=== PATIENT | female | born 1980 | race Caucasian/White ===

== ENCOUNTER → 2023-07-23 08:57 | Outpatient (CLI) | payer OTHER, SELFPAY ==
--- NOTE | ~2023-07-23 | CT_ITS ---
EXAMINATION: CT abdomen pelvis w con DATE: 07/23/2023 09:25 INDICATION: Pelvic pain and pressure for 2 days. Hematuria. TECHNIQUE: Computed tomography (CT) of the abdomen and pelvis was performed with 100 CC Omnipaque 350 intravenous contrast. Automated exposure control and iterative reconstruction technique were employe d. Exam dose: 399.27 mGy-cm total exam DLP. COMPARISON: None. FINDINGS: Normal heart size. No pericardial or pleural effusion. The lung bases are clear of infiltra te or consolidation. The liver, gallbladder, bile ducts, spleen, pancreas, pancreatic duct, and adrenal glands are unremar kable. No renal mass lesion. There is an approximately 2 mm nonobstructing right renal calculus. The ureters are difficult to trace. There is a possible 2.4 x 4.7 mm distal left ureteral calculus. P ost contrast KUB or repeat delayed postcontrast CT abdomen pelvis examination with help to more defin itively evaluate whether this is a ureteral calculus. There are multiple bilateral calcified pelvic phleboliths. There is a prominent amount of fecal material throughout the colon. No bowel obstruction, bowel wall thickening, pneumatosis or intraperitoneal free air is detected. The urinary bladder, uterus and adnexal areas are unremarkable with the exception of 1.8 cm left ovar joel cyst. Normal caliber of the abdominal aorta. No intraperitoneal or retroperitoneal or pelvic mass lesion or adenopathy or ascites is detected. Included skeletal structures are unremarkable other than thoracic and lumbar scoliosis. IMPRESSION: Possible 2.4 x 4.7 mm distal left ureteral calculus; no left hydronephrosis. Delayed KUB post contrast CT abdomen pelvis at this time is recommended, with possible repeat delayed postcontra st CT abdomen pelvis today as well should be considered. 2 mm nonobstructing right renal calculus 1.8 cm left ovarian cyst Reviewed, dictated and finalized at Location A. Reviewed, dictated and finalized at location B. STRIAL TWISTING MACHINE OPERATOR IMPRESSION: Possible 2.4 x 4.7 mm distal left ureteral calculus; no left hydro nephrosis. Delayed KUB post contrast CT abdomen pelvis at this time is recommen ded, with possible repeat delayed postcontrast CT abdomen pelvis today as well should be considered. 2 mm nonobstructing right renal calculus 1.8 cm left ovarian cyst
--- NOTE | ~2023-07-23 | XR_ITS ---
XR abdomen/kub 1V DATE: 07/23/2023 14:02 INDICATION: Pelvic pain, kidney stones. TECHNIQUE: 2 supine AP views COMPARISON: None FINDINGS: There is no hydronephrosis of either kidney or ureteral dilatation. There is radiopaque con trast material within the urinary evacuated urinary bladder. The psoas shadows are intact. No visceromegaly is evident. There is a prominent amount fecal material within the colon. No bowel obstruction is evident. . Without benefit of a mobile architect KUB, this examination does not exclude a nonobstructing calculus within the distal left ureter as questioned on the 07/23/2023 CT abdomen pelvis examination. Consider follow -up KUB another day after complete clearance of the IV contrast material IMPRESSION: No urinary tract obstruction is detected. Cannot exclude a nonobstructing distal left ure teral calculus. Consider follow-up KUB. Reviewed, dictated and finalized at Location A. Reviewed, dictated and finalized at location B. FLE BOARD OPERATOR IMPRESSION: No urinary tract obstruction is detected. Cannot exclude a nonobstr ucting distal left ureteral calculus. Consider follow-up KUB.
== END ==
PROVIDERS: PCP Nurse Practitioner; Visit Provider Nurse Practitioner
DX: R31.9 Hematuria, unspecified (principal); R10.2 Pelvic and perineal pain; N83.202 Unspecified ovarian cyst, left side; N20.0 Calculus of kidney
CPT/HCPCS: 74018; 74177; Q9967

== ENCOUNTER 2023-07-23 15:54 | Emergency (ER) | payer OTHER, SELFPAY ==
[2023-07-23 16:21] VITALS: BP 120/75; PULSE 62; RESP 17; TEMP 36.5; O2SAT 100
== END 2023-07-23 17:01 | disposition left against medical advice (07) ==
LOC: ANHED 16:25
PROVIDERS: PCP Nurse Practitioner
DX: N20.0 Calculus of kidney (principal)
CPT/HCPCS: 99199

== ENCOUNTER → 2023-07-27 08:51 | Outpatient (CLI) | payer OTHER, SELFPAY ==
--- NOTE | ~2023-07-27 | XR_ITS ---
XR abdomen/kub 1V 07/27/2023 09:21 INDICATION: Left ureteral stone TECHNIQUE: KUB COMPARISON: 07/23/2023 FINDINGS: Bowel gas pattern is normal. There is no evidence of free air, mass, organomegaly, ascites or obstruction. No abnormal calculi are seen. Calcifications in the pelvis are believed to be phleb oliths. The bones appear intact. There is levoscoliosis of the lumbar spine. IMPRESSION: 1: No acute abdominal abnormality identified. Reviewed, dictated and finalized at location L. NG MACHINE MAINTENANCE MECHANIC
== END ==
PROVIDERS: PCP Nurse Practitioner; Visit Provider Nurse Practitioner
DX: N20.1 Calculus of ureter (principal); R10.2 Pelvic and perineal pain; R31.9 Hematuria, unspecified; N20.0 Calculus of kidney
CPT/HCPCS: 74018

== ENCOUNTER 2025-06-19 14:00 | Outpatient (CLI) | payer OTHER, SELFPAY ==
--- NOTE | ~2025-06-19 | XR_ITS ---
EXAMINATION: XR abdomen/kub 1V, 06/19/2025 14:19 CDT HISTORY: renal stone; looking to see if stone passed COMPARISON: No comparisons available. Technique: 3 view. Findings: Moderate fecal content throughout the large bowel. No definite renal or ureteral calculi identified, there are multiple phleboliths in the pelvis. Indication noted of the pelvis, the hardware appears intact. Impression: 1. No definite ureteral calculi identified Reviewed, dictated and finalized at location P. Impression: 1. No definite ureteral calculi identified
--- OUTSIDE RECORDS SUMMARY | 2025-06-19 16:02 | XMS_ITS | Encounter Summary ---
Author Organization [facility] Address [address] [place] [address] Care Team Providers Care Computer Applications Instructor Name Role Phone Rose Pacheco MD Unavailable [phone] Rivera Solitario MD Unavailable [phone] Kary Morocho NP Primary Care Provider + [phone] Akanksha De Jesus MD Primary Care Provider + Encounter Details Date Type Department Care Team (Late st Contact Info) Description 02/09/2023 [employer] Message Enc [facility] Family Medicine - [place] [address] [facility] [address] [place], [place] [phone] Kary Morocho, [place] [address] [place], [place] [id number] Test result Social History Tobacco Use Types Packs/Day Years Used Date Smoking Tobacco: Never Passive Smoke Exposure: Never Smokeless Tobacco: Never Alcohol Use Standard Drinks/Week Comments Yes 0 (1 standard drink = 0.6 oz pur e alcohol) socially / monthly PHQ-2 Answer Date Recorded Patient Health Questionnaire-2 Score 2 11/13/2022 Comments No Sex and Gender Information Value Date Recorded Sex Assigned at Female 11/13/2024 11:18 AM CDT Legal Sex Female 7:17 PM CDT Gender Identity Not on file Sexual Orientation Not on file COVID-19 Exposure Response Date Recorded In the last 10 days, have yo u been in contact with someone who was confirmed or suspected to have Coronavirus/COVID-19? No / Unsure 02/12/2023 12:30 PM CDT documented as of this encounter Plan of Treatment Upcoming Encounters Date Type Department Care Team (Late st Contact Info) Description 06/22/2025 11:00 AM CDT Appointment [facility] [place] [address] Porter Cade MD 3 [place] [address] 07/03/2025 7:50 AM CDT Office Visit [facility] Medical Group Family Medicine - [place] [address] [place] [address] Akanksha De Jesus MD [address] [place] [address] 07/20/2025 12:45 PM KEG FILLER Office Visit [facility] [address] Brooks Vance MD [address] [facility] [address] [place] [address] 11/05/2025 10:20 AM KEG FILLER Office Visit [facility] Multispecialty Care - [facility] [address] [facility], [address] [place] [address] Porter Cade MD 3 [place] [address] documented as of this encounter Visit Diagnoses Not on filedocumented in this encounter Additional Health Concerns Assessment Noted Time PHQ-9 Depression Total Score: 10 023 10:50 AM KEG FILLER documented as of this encounter Care Teams Computer Applications Instructor Relationship Specialty Start Date End Date Kary Morocho NP [address] [place] [address] PCP - General NURSE PRACTITIONER 09/17/20 06/18/24 Akanksha De Jesus MD [address] [place] [address] PCP - General FAMILY PRACTICE 06/19/24 Roes Pacheco MD [address] [facility] [address] [place] [address] Referring Physician GASTROENTEROLOGY 01/02/19 Rivera Solitario MD [address] [facility] [address] [place] [address] Referring Physician DERMATOLOGY 01/02/19 documented as of this encounter
--- OUTSIDE RECORDS SUMMARY | 2025-06-19 16:02 | XMS_ITS | Encounter Summary ---
Author Organization [facility] Address [address] [place] [address] Care Team Providers Care Hide Buyer Name Role Phone Rose Pacheco MD Unavailable [phone] Rivera Solitario MD Unavailable [phone] Kary Morocho NP Primary Care Provider + [phone] Akanksha De Jesus MD Primary Care Provider + Encounter Details Date Type Department Care Team (Late st Contact Info) Description 04/20/2024 MyChart Message Enc [facility] Family Medicine - [place] [address] [place] [phone] Akanksha De Jesus MD [address] [place], [place] [id number] Dr mckinney Social History Tobacco Use Types Packs/Day Years Used Date Smoking Tobacco: Never Passive Smoke Exposure: Never Smokeless Tobacco: Never Alcohol Use Standard Drinks/Week Comments Yes 0 (1 standard drink = 0.6 oz pur e alcohol) socially / monthly PHQ-2 Answer Date Recorded Patient Health Questionnaire-2 Score 5 03/27/2024 Comments No Sex and Gender Information Value Date Recorded Sex Assigned at Female 11/13/2024 11:18 AM CDT Legal Sex Female 7:17 PM CDT Gender Identity Not on file Sexual Orientation Not on file 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 Not on file Not on file documented as of this encounter Plan of Treatment Upcoming Encounters Date Type Department Care Team (Late st Contact Info) Description 06/22/2025 11:00 AM CDT Appointment [facility] [place] [place] [address] Porter Cade MD 3 [place] [address] 07/03/2025 7:50 AM CDT Office Visit [facility] Family Medicine - [place] [address] [place] [address] Akanksha De Jesus MD [address] [place] [address] 07/20/2025 12:45 PM HISTOPATHOLOGY TECHNICIAN Office Visit [facility] [phone] Brooks Vance MD [address] [facility] [address] [place] [address] 11/05/2025 10:20 AM HISTOPATHOLOGY TECHNICIAN Office Visit [facility] Multispecialty Care - [facility] [address] [facility], [address] [place] [address] Porter Cade MD 3 [place] [address] documented as of this encounter Visit Diagnoses Not on filedocumented in this encounter Additional Health Concerns Assessment Noted Time PHQ-9 Depression Total Score: 10 023 10:50 AM HISTOPATHOLOGY TECHNICIAN documented as of this encounter Care Teams Hide Buyer Relationship Specialty Start Date End Date Kary Morocho NP [address] [place] [address] PCP - General NURSE PRACTITIONER 09/17/20 06/18/24 Akanksha De Jesus MD [address] [address] PCP - General FAMILY PRACTICE 06/19/24 Rose Pacheco MD [address] [facility] [address] [place] [address] Referring Physician GASTROENTEROLOGY 01/02/19 Rivera Solitario MD [address] [facility] [address] [place] [address] Referring Physician DERMATOLOGY 01/02/19 documented as of this encounter
--- OUTSIDE RECORDS SUMMARY | 2025-06-19 16:02 | XMS_ITS | Encounter Summary ---
Author Organization [facility] Address [address] [place] [address] Care Team Providers Care Liquor Gallery Operator Name Role Phone Rose Pacheco MD Unavailable [phone] Rivera Solitario MD Unavailable [phone] Kary Morocho NP Primary Care Provider + [phone] Akanksha De Jesus MD Primary Care Provider + Encounter Details Date Type Department Care Team (Late st Contact Info) Description 06/18/2024 MyChart Message Enc [facility] Medical Group Family Medicine - [place] [address] [place] [phone] Akanksha De Jesus MD [address] [place] [phone] Accident Social History Tobacco Use Types Packs/Day Years [...] Info) Description 06/22/2025 11:00 AM CDT Appointment [facility] [place] [address] Porter Cade MD 3 [place] [address] 07/03/2025 7:50 AM CDT Office Visit [facility] Family Medicine - [place] [address] [place] [address] Akanksha De Jesus MD [address] [place] [address] 07/20/2025 12:45 PM LACQUER SHADER Office Visit [facility] [address] Brooks Vance MD Three [facility] [address] [place] [address] 11/05/2025 10:20 AM LACQUER SHADER Office Visit [facility] Multispecialty Care - [facility] [address] [facility], [address] [place] [address] Porter Cade MD 3 [place] [address] documented as of this encounter Visit Diagnoses Not on filedocumented in this encounter Additional Health Concerns Assessment Noted Time PHQ-9 Depression Total Score: 10 023 10:50 AM LACQUER SHADER documented as of this encounter Care Teams Liquor Gallery Operator Relationship Specialty Start Date End Date Kary Morocho NP [address] [place] [address] PCP - General NURSE PRACTITIONER 09/17/20 06/18/24 Akanksha De Jesus MD [address] [facility] [address] [place] [address] PCP - General FAMILY PRACTICE 06/19/24 Rose Pacheco MD [address] [facility] [address] [place] [address] Referring Physician GASTROENTEROLOGY 01/02/19 Rivera Solitario MD [address] [facility] [address] [place] [address] Referring Physician DERMATOLOGY 01/02/19 documented as of this encounter
--- OUTSIDE RECORDS SUMMARY | 2025-06-19 16:02 | XMS_ITS | Encounter Summary ---
Author Organization [facility] Address [address] [place] [address] Care Team Providers Care Environmental Inspector Name Role Phone Rose Pacheco MD Unavailable [phone] Rivera Solitario MD Unavailable [phone] Kayr Morocho NP Primary Care Provider [phone] Akanksha De Jesus MD Primary Care Provider + Encounter Details Date Type Department Care Team (Late st Contact Info) Description 07/21/2023 [employer] Message Enc [facility] Medical Group Family Medicine - [place] [address] [facility] [address] [place] [address] Alec, [facility] Provider appointment Social History Tobacco Use Types Packs/Day Years [...] Encounters Date Type Department Care Team (Late Contact Info) Description 06/22/2025 11:[address] [facility] [place] [address] Porter Cade MD 3 [place] [address] 07/03/2025 7:50 AM CDT Office Visit [facility] Family Medicine - [place] [address] [place] [address] Akanksha De Jesus MD [address] [place] [address] 07/20/2025 12:45 PM COMFORT ADVISOR Office Visit [facility] [address] Brooks Vance MD Three [facility] [address] [place] [address] 11/05/2025 10:20 AM COMFORT ADVISOR Office Visit [facility] Multispecialty Care - [facility] [address] [facility], [address] [place] [address] Porter Cade MD 3 [place] [address] documented as of this encounter Visit Diagnoses Not on filedocumented in this encounter Additional Health Concerns Assessment Noted Time PHQ-9 Depression Total Score: 10 023 10:50 AM COMFORT ADVISOR documented as of this encounter Care Teams Environmental Inspector Relationship Specialty Start Date End Date Kary Morocho NP [address] [place] [address] PCP - General NURSE PRACTITIONER 09/17/20 06/18/24 Akanksha De Jesus MD [address] [place] [address] PCP - General FAMILY PRACTICE 06/19/24 Rose Pacheco MD [address] [facility] [address] [place] [address] Referring Physician GASTROENTEROLOGY 01/02/19 Rivera Solitario MD [address] [facility] [address] [place] [address] Referring Physician DERMATOLOGY 01/02/19 documented as of this encounter
--- OUTSIDE RECORDS SUMMARY | 2025-06-19 16:02 | XMS_ITS | Encounter Summary ---
Author Organization [facility] Address [address] [place] [address] Care Team Providers Care Genetic Counsellor Name Role Phone Rose Pacheco MD Unavailable [phone] Rivera Solitario MD Unavailable [phone] Kary Morocho NP Primary Care Provider + [phone] Akanksha De Jesus MD Primary Care Provider + Encounter Details Date Type Department Care Team (Late st Contact Info) Description 01/11/2023 [employer] Message Enc [facility] Medical Group Family Medicine - [place] [address] [facility] [address] [place], [place] [phone] Kary Morocho, [place] [address] [place] [address] [place], [place] [address] Meds Social History Tobacco Use Types Packs/Day Years Used Date Smoking Tobacco: Never Smokeless Tobacco: Never Alcohol Use Standard [...] suspected to have Coronavirus/COVID-19? No / Unsure 01/13/2023 1:33 PM CDT documented as of this encounter Progress Notes * Cat Cohen MA - 01/11/2023 4:03 PM CDT Appointment made 01/13/23 documented in this encounter Plan of Treatment Upcoming Encounters Date Type Department Care Team (Late st Contact Info) Description 06/22/2025 11:00 AM CDT Appointment [facility] [place] [address] Porter Cade MD 3 [facility] [place] [address] 07/03/2025 7:50 AM CDT Office Visit [facility] Family Medicine - [place] [address] [place] [address] Akanksha De Jesus MD [address] [place] [address] 07/20/2025 12:45 PM CORD MAKER Office Visit [facility]-[address] [address] Brooks Vance MD [address] [facility] [address] [place] [address] 11/05/2025 10:20 AM CORD MAKER Office Visit [facility] [address] [facility], [address] [place] [address] Porter Cade MD 3 [facility] [place] [address] documented as of this encounter Visit Diagnoses Not on filedocumented in this encounter Additional Health Concerns Assessment Noted Time PHQ-9 Depression Total Score: 10 023 10:50 AM CORD MAKER documented as of this encounter Care Teams Genetic Counsellor Relationship Specialty Start Date End Date Kary Morocho NP [address] [place] [address] PCP - General NURSE PRACTITIONER 09/17/20 06/18/24 Akanksha De Jesus MD [address] [place] [address] PCP - General FAMILY PRACTICE 06/19/24 Rose Pacheco MD [address] [facility] [address] [place] [address] Referring Physician GASTROENTEROLOGY 01/02/19 Rivera Solitario MD [address] [facility] [address] [place] [address] Referring Physician DERMATOLOGY 01/02/19 documented as of this encounter
--- OUTSIDE RECORDS SUMMARY | 2025-06-19 16:02 | XMS_ITS | Encounter Summary ---
Author Organization [facility] Address [address] [place] [address] Care Team Providers Care Buckle Gluer Name Role Phone Rose Pacheco MD Unavailable [phone] Rivera Solitario MD Unavailable [phone] Kary Morocho NP Primary Care Provider + [phone] Akanksha De Jesus MD Primary Care Provider + Encounter Details Date Type Department Care Team (Late st Contact Info) Description 08/04/2023 MyChart Message Enc [facility] Family Medicine - [place] [address] [facility] [address] [place] [phone] Kary Morocho, CHIEF OF VITAL STATISTICS [address] [place] [address] [place], [place] [address] Update Social History Tobacco Use Types Packs/Day Years [...] Description 06/22/2025 11:00 AM CDT Appointment [facility] [place] [address] Porter Cade MD 3 [place] [address] 07/03/2025 7:50 AM CDT Office Visit [facility] Family Medicine - [place] [address] [place] [address] Akanksha De Jesus MD [address] [place] [address] 07/20/2025 12:45 PM RUBBER GOODS TESTER WATER Office Visit [facility] [address] Brooks Vance MD Three [facility] [address] [place] [address] 11/05/2025 10:20 AM RUBBER GOODS TESTER WATER Office Visit [facility] Multispecialty Care - [facility] 3 [facility], [address] [place] [address] Porter Cade MD 3 [place] [address] documented as of this encounter Visit Diagnoses Not on filedocumented in this encounter Additional Health Concerns Assessment Noted Time PHQ-9 Depression Total Score: 10 023 10:50 AM RUBBER GOODS TESTER WATER documented as of this encounter Care Teams Buckle Gluer Relationship Specialty Start Date End Date Kary Morocho NP [address] [place] [address] PCP - General NURSE PRACTITIONER 09/17/20 06/18/24 Akanksha De Jesus MD [address] [facility] [address] [place] [address] PCP - General FAMILY PRACTICE 06/19/24 Rose Pacheco MD [address] [facility] [address] [place] [address] Referring Physician GASTROENTEROLOGY 01/02/19 Rivera Solitario MD [address] [facility] [address] [place] [address] Referring Physician DERMATOLOGY 01/02/19 documented as of this encounter
--- OUTSIDE RECORDS SUMMARY | 2025-06-19 16:02 | XMS_ITS | Encounter Summary ---
Author Organization [facility] Address [address] [place] [address] Care Team Providers Care Personalization Specialist Name Role Phone Leonides Shannon [facility] Primary Care Provider Rose Lockwood MD Unavailable [phone] Rivera Solitario MD Unavailable [phone] Kary Morocho NP Primary Care Provider [phone] Akanksha De Jesus MD Primary Care Provider + Encounter Details Date Type Department Care Team (Late st Contact Info) Description 11/07/2019 MyChart Message Enc [facility] Medical Group Family Medicine [address] [address] Mychart, [facility] Provider GI doctor Social History Tobacco Use Types Packs/Day Years Used Date Smoking Tobacco: Never Smokeless Tobacco: Never Alcohol Use Standard Drinks/Week Comments Yes 0 (1 standard drink = 0.6 oz pur e alcohol) socially / monthly Comments Unknown Sex and Gender Information Value Date Recorded Sex Assigned at Female 11/13/2024 11:18 AM CDT Legal Sex Female 7:17 PM CDT Gender Identity Not on file Sexual Orientation Not on file documented as of this encounter Plan of Treatment Upcoming Encounters Date Type Department Care Team (Late Contact Info) Description 06/22/2025 11:[address] [facility] [place] [address] Porter Cade MD 3 [place] [address] 07/03/2025 7:50 AM CDT Office Visit [facility] Family Medicine - [place] [address] [place] [address] Akanksha De Jesus MD [address] [place] [address] 07/20/2025 12:45 PM INKJET OPERATOR Office Visit [facility]-[address] [address] Brooks Vance MD Three [facility] [address] [place] [address] 11/05/2025 10:20 AM INKJET OPERATOR Office Visit [facility] Multispecialty Care - [facility] 3 [facility], [address] [place] [address] Porter Cade MD 3 [place] [address] documented as of this encounter Visit Diagnoses Not on filedocumented in this encounter Additional Health Concerns Infection Onset Date Last Indicated Resolved Time COVID-19 Rule Out 02/05/2020 02/05/2020 02/06/2020 9:15 AM CDT documented as of this encounter Care Teams Personalization Specialist Relationship Specialty Start Date End Date Shannon Coyle FNP-BC PCP - General NURSE PRACTITIONER 01/02/19 09/16/20 Kary Morocho NP [address] [place] [address] PCP - General NURSE PRACTITIONER 09/17/20 06/18/24 Akanksha De Jesus MD [address] [place] [address] PCP - General FAMILY PRACTICE 06/19/24 Rose Pacheco MD [address] [facility] [address] [place], [place] [address] Referring Physician GASTROENTEROLOGY 01/02/19 Rivera Solitario MD [address] [facility] [address] [place], [place] [address] Referring Physician DERMATOLOGY 01/02/19 documented as of this encounter
--- OUTSIDE RECORDS SUMMARY | 2025-06-19 16:02 | XMS_ITS | Encounter Summary ---
Author Organization [facility] Address [address] [place] [address] Care Team Providers Care Accounts Executive Name Role Phone Rose Pacheco MD Unavailable [phone] Rivera Solitario MD Unavailable [phone] Kary Morocho NP Primary Care Provider + [phone] Akanksha De Jesus MD Primary Care Provider + Encounter Details Date Type Department Care Team (Latest Contact Info) Description 11/15/2022 Rent Heret Message Enc [facility] Medical [facility] Family Medicine - [place] [address] [facility] [address] [place] [phone] Kary Morocho, [place] [address] [place], [place] [phone] Regarding my prescriptions Social History Tobacco Use Types Packs/Day Years [...] suspected to have Coronavirus/COVID-19? No / Unsure 11/13/2022 8:50 AM ELECTROMECHANICAL INSPECTOR documented as of this encounter Plan of Treatment Upcoming Encounters Date Type Department Care Team (Late st Contact Info) Description 06/22/2025 11:[address] [facility] [place] [place] [address] Porter Cade MD 3 [place] [address] 07/03/2025 7:50 AM CDT Office Visit [facility] Family Medicine - [place] [address] [place] [address] Akanksha De Jesus MD [address] [place] [address] 07/20/2025 12:45 PM ELECTROMECHANICAL INSPECTOR Office Visit [facility] [place] [address] [phone] Brooks Vanec MD [address] [place] [address] 11/05/2025 10:20 AM ELECTROMECHANICAL INSPECTOR Office Visit [facility] Multispecialty Care - [place] [address] [place] [phone] Porter Cade MD 3 [place] [address] documented as of this encounter Visit Diagnoses Not on filedocumented in this encounter Additional Health Concerns Assessment Noted Time PHQ-9 Depression Total Score: 10 023 10:50 AM ELECTROMECHANICAL INSPECTOR documented as of this encounter Care Teams Accounts Executive Relationship Specialty Start Date End Date Kary Morocho NP [address] [place] [address] PCP - General NURSE PRACTITIONER 09/17/20 06/18/24 Akanksha De Jesus MD [address] [place] [address] PCP - General FAMILY PRACTICE 06/19/24 Rose Pacheco MD [address] [facility] [address] [place] [address] Referring Physician GASTROENTEROLOGY 01/02/19 Rivera Solitario MD [address] [facility] [address] [place] [address] Referring Physician DERMATOLOGY 01/02/19 documented as of this encounter
--- OUTSIDE RECORDS SUMMARY | 2025-06-19 16:02 | XMS_ITS | Encounter Summary ---
Author Organization [facility] Address [address] [place] [address] Care Team Providers Care Cryptologic Supervisor Name Role Phone Rose Pacheco MD Unavailable [phone] Rivera Solitario MD Unavailable [phone] Kary Morocho NP Primary Care Provider + [phone] Akanksha De Jesus MD Primary Care Provider + Encounter Details Date Type Department Care Team ([facility] Contact Info) Description 08/06/2023 Mc Kinney Locksmith Message Enc [facility] Medical Group Family Medicine - [place] [address] [facility] [address] [place], [place] [phone] Kary Morocho, [place] [address] [place], [place] [address] Responding to your message Social History Tobacco Use Types Packs/Day Years [...] Upcoming Encounters Date Type Department Care Team ([facility] Contact Info) Description 06/22/2025 11:00 AM CDT Appointment [facility] [address] Porter Cade MD 3 [place] [address] 07/03/2025 7:50 AM CDT Office Visit [facility] Family Medicine - [place] [address] [place] [address] Akanksha De Jesus MD [address] [place] [address] 07/20/2025 12:45 PM POULTRY BONER Office Visit [facility] [address] Brooks Vance MD Three [facility] [address] [place] [address] 11/05/2025 10:20 AM POULTRY BONER Office Visit [facility] Multispecialty Care - [facility] [address] [facility], [address] [place] [address] Porter Cade MD 3 [place] [address] documented as of this encounter Visit Diagnoses Not on filedocumented in this encounter Additional Health Concerns Assessment Noted Time PHQ-9 Depression Total Score: 10 023 10:50 AM POULTRY BONER documented as of this encounter Care Teams Cryptologic Supervisor Relationship Specialty Start Date End Date Kary Morocho NP [address] [place] [address] PCP - General NURSE PRACTITIONER 09/17/20 06/18/24 Akanksha De Jesus MD [address] [facility] [address] [place] [address] PCP - General FAMILY PRACTICE 06/19/24 Rose Pacheco MD [address] [facility] [address] [place] [address] Referring Physician GASTROENTEROLOGY 01/02/19 Rivera Solitario MD [address] [facility] [address] [place] [address] Referring Physician DERMATOLOGY 01/02/19 documented as of this encounter
--- OUTSIDE RECORDS SUMMARY | 2025-06-19 16:02 | XMS_ITS | Clinical Summary ---
Author Organization [facility] Address [address] [place] [address] Phone Care Team Providers Care Human Resources Temp Name Role Phone Stephanie Coyle APRN Primary Care Provider Jef Corral MD Unavailable Allergies Active Allergy Reactions Criticality Noted Date Comments Bupropion Other (see Comments) Medium 01/02/2019 Gluten Meal Other (see Comments) 01/02/2019 Dx w EGD Penicillins Hives 01/02/2019 Medications albuterol 108 (90 Base) MCG/ACT Aerosol Solution take 2 Puffs by inhalation. 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 10/2019 Seizure 01/02/2019 Immunizations Immunization Administration Dates Next Due Influenza Vaccine,unspecified Formulation 2018 TDAP Vaccine 07/14/2012 Family History Medical History Relation Name Comments Cancer Father Chronic Obstructive Pulmonary Disease Father Chronic Obstructive Pulmonary Disease Mother Heart Disease Mother Cancer Sister 1 Relation Name Status Comments Father Mother Sister 1 Alive Sister 2 Alive Social History Tobacco Use Types Packs/Day Years Used Date Smoking Tobacco: Never Smokeless Tobacco: Never Tobacco Cessation:Counseling Given: Not Answered Alcohol Use Standard Drinks/Week Comments Yes 0 (1 standard drink = 0.6 oz pur e alcohol) One time per month. Socially PHQ-2 Answer Date Recorded Total Score - Questions 1-9 0 05/08 Education Answer Date Recorded What is the highest level of school you have completed or the highest degree you have received? Master's degree (e.g., MA, MS, Ashlyn, MEd, CONSTRUCTION ASSISTANT, JOSEFA) 05/08/2020 Sexually Active Control Partners Comments Yes Comments No Sex and Gender Information Value Date Recorded Sex Assigned at Not on file Legal Sex Female 11:36 AM CDT Gender Identity Not on file Sexual Orientation Not on file Occupation Industry Job Start Date Job End Date Teacher Not on file Not on file Not on file Last Filed Vital Signs Vital Sign Reading Time Taken Comments Blood Pressure 108/60 04/28/2024 8:50 AM CDT Pulse 56 04/28/2024 8:50 AM CDT Temperature 36.2 C (97.1 F) 06/12/2022 8:29 AM CDT Respiratory Rate 18 06/12/2022 8:29 AM CDT Oxygen Saturation 97% 04/28/2024 8:50 AM CDT Inhaled Oxygen Concentration - - Weight 54.4 kg (120 lb) 06/12/2022 8:29 AM CDT Height 160 cm (5' 2.99) 06/12/2022 8:29 AM CDT Body Mass Index 21.26 06/12/2022 8:29 AM CDT Plan of Treatment Health Maintenance Due Date Last Done Comments Hepatitis C Virus (HCV) Screening 1982 Hepatitis B Immunization (1 of 3 - 19+ 3-dose series) 2001 Pap Smear 2003 Human Papillomavirus (HPV) Immunization (1 - 3-dose SCDM series) 2009 Cervical Cancer Screening (CCS) 2012 HPV/Cotest 2012 Mammogram 09/11/2023 09/11/2022, 02/2023, 07/23/2021, Additional history exists Influenza Immunization (#1) 2025 08/05/2019 SARS-COV-2 Immunization ( season) 2025 09/03/2021, 11/27/2020, 11/05/2020 Td Immunization Every 10 Years (Adults With 1 Tdap) 06/14/2034 06/14/2024, 07/14/2012 Respiratory Syncytial Virus (RSV) Immunization (Adult) (1 - 1-dose 75+ series) 2057 Discussion re Starting/Frequency of Mammograms Completed 09/11/2022, 07/23/2021 DTaP/Tdap/Td Immunization Discontinued 06/14/2024, 04/2012 Meningococcal Immunization (ACWY) Aged Out No longer eligible based on patient's age to complete this topic Pneumococcal Immunization Combined Aged Out No longer eligible based on patient's age to complete this topic Rotavirus Immunization Aged Out No lo nger eligible based on patient's age to complete this topic Insurance [facility] Care Teams Human Resources Temp Relationship Specialty Start Date End Date Stephanie Coyle APRN [address] [place] [address] PCP - General Family Medicine 04/26/20 Jef Corral MD [address] [place] [address] Consulting Physician Hematology and Oncology 02/05/21
--- OUTSIDE RECORDS SUMMARY | 2025-06-19 16:02 | XMS_ITS | Encounter Summary ---
Author Organization [facility] Address [address] [place] [address] Care Team Providers Care Mainframe Programmer Name Role Phone Leonides Shannon [facility] Primary Care Provider Rose Lockwood MD Unavailable [phone] Rivera Solitario MD Unavailable [phone] Kary Morocho NP Primary Care Provider [phone] Akanksha De Jesus MD Primary Care Provider + Encounter Details Date Type Department Care Team (Late st Contact Info) Description 02/05/[address] [facility] One Day Services ONE [place], [place] [phone] Gordon Macias MD [address] [phone] Social History Tobacco Use Types Packs/Day Years [...] Exposure Response Date Recorded In the last month, have you been in contact with someone who was confirmed or suspected to have Coronavirus / COVID-19? No / Unsure 02/08/2020 8:29 AM CDT documented as of this encounter Plan of Treatment Upcoming Encounters Date Type Department Care Team (Late st Contact Info) Description 06/22/2025 11:00 AM CDT Appointment [facility] [place] [place] [address] Porter Cade MD 3 [place] [address] 07/03/2025 7:50 AM CDT Office Visit [facility] Medical [facility] Family Medicine - [place] [address] [place] [address] Akanksha De Jesus MD [address] [place] [address] 07/20/2025 12:45 PM HOME PERFORMANCE CONSULTANT Office Visit [facility]-[address] [phone] Brooks Vance MD [address] [facility] [address] [place] [address] 11/05/2025 10:20 AM HOME PERFORMANCE CONSULTANT Office Visit [facility] Multispecialty Care - [facility] [address] [facility], [address] [place] [address] Porter Cade MD [address] [place] [address] documented as of this encounter Results * PRE-SURGICAL/PRE-PROCEDURE CORONAVIRUS (COVID 19) (02/05/2020 11:45 AM CDT) CORONAVIRUS SARS COV 2 PCR (RESP) NOT DETECTED NOT DETECTED 02/06/2020 9:15 AM CDT [facility] Comment: A Not Detected (negative) test result for this test means that SARS- CoV-2 RNA was not present in the specimen above the limit of detection. A negative result does not rule out the possibility of COVID-19 and should not be used as the sole basis for treatment or patient management decisions. If COVID-19 is still suspected, based on exposure history together with other clinical findings, re-testing should be considered in consultation with public health authorities. Laboratory test results should always be considered in the context of clinical observations and epidemiological data in making a final diagnosis and patient management decisions. Please review the Fact Sheets and FDA authorized labeling available for health care providers and patients using the following websites: https://www.LearnZillion.Sparkbrowser/home/Covid-19/HCP/QuestIVD/fact- sheet.html https://www.LearnZillion.Sparkbrowser/home/Covid-19/Patients/ QuestIVD/fact-sheet.html This test has been authorized by the FDA under an Emergency Use Authorization (EUA) for use by authorized laboratories. Due to the current public health emergency, [facility] is receiving a high volume of samples from a wide variety of swabs and media for COVID-19 testing. In order to serve patients during this public health crisis, samples from appropriate clinical sources are being tested. Negative test results derived from specimens received in non-commercially manufactured viral collection and transport media, or in media and sample collection kits not yet authorized by FDA for COVID-19 testing should be cautiously evaluated and the patient potentially subjected to extra precautions such as additional clinical monitoring, including collection of an additional specimen. Methodology: Nucleic Acid Amplification Test (NAAT) includes PCR or TMA Additional information about COVID-19 can be found at the [facility] website: www.ShopItToMe.Sparkbrowser/Covid19. Test performed at [facility] [address] [place] [address] Director: BENNY YOUSSEF DO,MPH NASOPHARYNGEAL SWAB / Unknown 02/05/2020 11:45 AM CDT Gordon Macias MD MICROBIOLOGY - GENERAL MELINDA [place] Final Result [facility] [address] [place] [address], documented in this encounter Visit Diagnoses Diagnosis Anemia- Primary Anemia, unspecified documented in this encounter Additional Health Concerns Infection Onset Date Last Indicated Resolved Time COVID-19 Rule Out 02/05/2020 02/05/2020 02/06/2020 9:15 AM CDT documented as of this encounter Care Teams Mainframe Programmer Relationship Specialty Start Date End Date Shannon Coyle FNP- PCP - General NURSE PRACTITIONER 01/02/19 09/16/20 Kary Morocho NP [address] [place] [address] PCP - General NURSE PRACTITIONER 09/17/20 06/18/24 Akanksha De Jesus MD [address] [place] [address] PCP - General FAMILY PRACTICE 06/19/24 Rose Pacheco MD [address] [facility] [address] [place] [address] Referring Physician GASTROENTEROLOGY 01/02/19 Rivera Solitario MD [address] [facility] [address] [place] [address] Referring Physician DERMATOLOGY 01/02/19 documented as of this encounter
--- OUTSIDE RECORDS SUMMARY | 2025-06-19 16:02 | XMS_ITS | Encounter Summary ---
Author Organization [facility] Address [address] [place] [address] Care Team Providers Care Document Clerk Name Role Phone Rose Pacheco MD Unavailable [phone] Rivera Solitario MD Unavailable [phone] Kary Morocho NP Primary Care Provider [phone] Akanksha De Jesus MD Primary Care Provider + Encounter Details Date Type Department Care Team (Late st Contact Info) Description 07/28/2023 MyChart Message Enc [facility] Family Medicine - [place] [address] [facility] [address] [place] [address] [place], [facility] Provider Xray Social History Tobacco Use Types Packs/Day Years [...] [facility]ointment [facility] [place] [place] [address] Porter Cade MD 3 [place] [address] 07/03/2025 7:50 AM CDT Office Visit [facility] Family Medicine - [place] [address] [place] [address] Akanksha De Jesus MD [address] [place] [address] 07/20/2025 12:45 PM EIGHT ARM OPERATOR Office Visit [facility] [address] Brooks Vance MD [address] [facility] [address] [place] [address] 11/05/2025 10:20 AM EIGHT ARM OPERATOR Office Visit [facility] Multispecialty Care - [facility] [address] [facility], [address] [place] [phone] Porter Cade MD 3 [place] [address] documented as of this encounter Visit Diagnoses Not on filedocumented in this encounter Additional Health Concerns Assessment Noted Time PHQ-9 Depression Total Score: 10 023 10:50 AM EIGHT ARM OPERATOR documented as of this encounter Care Teams Document Clerk Relationship Specialty Start Date End Date Kary Morocho NP [address] [place] [address] PCP - General NURSE PRACTITIONER 09/17/20 06/18/24 Akanksha De Jesus MD [address] [place] [address] PCP - General FAMILY PRACTICE 06/19/24 Rose Pacheco MD [address] [facility] [address] [place] [address] Referring Physician GASTROENTEROLOGY 01/02/19 Rivera Solitario MD [address] [facility] [address] [place] [address] Referring Physician DERMATOLOGY 01/02/19 documented as of this encounter
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
--- OUTSIDE RECORDS SUMMARY | 2025-06-19 16:02 | XMS_ITS | Encounter Summary ---
Author Organization [facility] Address [address] [place] [address] Care Team Providers Care Mergers And Acquisitions Manager Name Role Phone Rose Pacheco MD Unavailable [phone] Rivera Solitario MD Unavailable [phone] Kary Morocho NP Primary Care Provider + [phone] Akanksha De Jesus MD Primary Care Provider + Encounter Details Date Type Department Care Team (Late st Contact Info) Description 07/24/2021 Maker Studiost Message Enc [facility] Family Medicine - [place] [address] [facility] [address] [place], [place] [id number] Kary Morocho, [place] [address] [place], [place] [address] Question regarding US BREAST RT BIRAD LTD Social History Tobacco Use Types Packs/Day Years Used Date Smoking Tobacco: Never Smokeless Tobacco: Never Alcohol Use Standard Drinks/Week Comments Yes 0 (1 standard drink = 0.6 oz pur e alcohol) socially / monthly PHQ-2 Answer Date Recorded PHQ-2 Score - If the patient scores above 3, please move on to questions 3-9 2 10/01/2020 Comments No Sex and Gender Information Value Date Recorded Sex Assigned at Female 11/13/2024 11:18 AM CDT Legal Sex Female 7:17 PM CDT Gender Identity Not on file Sexual Orientation Not on file COVID-19 Exposure Response Date Recorded In the last month, have you been in contact with someone who was confirmed or suspected to have Coronavirus / COVID-19? No / Unsure 07/22/2021 3:14 PM RESIDENT IN DIAGNOSTIC RADIOLOGY documented as of this encounter Plan of Treatment Upcoming Encounters Date Type Department Care Team (Late st Contact Info) Description 06/22/2025 11:00 AM CDT Appointment [facility] [place] [address] Porter Cade MD 3 [place] [address] 07/03/2025 7:50 AM CDT Office Visit [facility] Family Medicine - [place] [address] [place] [address] Akanksha De Jesus MD [address] [place] [address] 07/20/2025 12:45 PM RESIDENT IN DIAGNOSTIC RADIOLOGY Office Visit [facility] [address] Brooks Vance MD [address] [facility] [address] [place] [address] 11/05/2025 10:20 AM RESIDENT IN DIAGNOSTIC RADIOLOGY Office Visit [facility] Multispecialty Care - [facility] [address] [facility], [address] [place] [address] Porter Cade MD [address] [place] [address] documented as of this encounter Visit Diagnoses Not on filedocumented in this encounter Additional Health Concerns Assessment Noted Time PHQ-9 Depression Total Score: 7 10/01/19 21 8:26 AM RESIDENT IN DIAGNOSTIC RADIOLOGY documented as of this encounter Care Teams Mergers And Acquisitions Manager Relationship Specialty Start Date End Date Kary Morocho NP [address] [place] [address] PCP - General NURSE PRACTITIONER 09/17/20 06/18/24 Akanksha De Jesus MD [address] [place] [address] PCP - General FAMILY PRACTICE 06/19/24 Rose Pacheco MD [address] [facility] [address] [place] [address] Referring Physician GASTROENTEROLOGY 01/02/19 Rivera Solitario MD [address] [facility] [address] [place] [address] Referring Physician DERMATOLOGY 01/02/19 documented as of this encounter
--- OUTSIDE RECORDS SUMMARY | 2025-06-19 16:02 | XMS_ITS | Clinical Summary ---
Author Organization [facility] Address Counts include 234 beds at the [facility] [place] [address] Care Team Providers Care Traffic Safety Administrator Name Role Phone Rose Pacheco MD Unavailable [phone] Rivera Solitario MD Unavailable [phone] Akanksha De Jesus MD Primary Care Provider + Allergies Active Allergy Reactions Criticality Noted Date Comments Gluten Meal Other (see comment),Diarrhea,Headache,Vomiting Low 01/02/2019 Dx w EGD Penicillins Hives 01/02/2019 Bupropion Seizure Medium 01/02/2019 Medications ALPRAZolam (XANAX) 0.25 MG tablet Take 1 tablet (0.25 mg total) by mouth nightly as needed for Sleep or Anxiety. Active cyanocobalamin (B-12 COMPLIANCE INJECTION) 1000 MCG/ML injection kit 3 Active meloxicam (MOBIC) 7.5 MG tablet Take 1 tablet (7.5 mg total) by mouth daily as needed. 5 Active ubrogepant (UBRELVY) 100 MG tabletIndication s:Migraine without aura, not intractable, without status migrainosus Take 1 tablet (100 mg total) by mouth 2 (two) times daily as needed. Max of 2 tablets (200 mg) in 24 hours 16 tablet 11 5 Active amphetamine-dext roamphetamine XR (ADDERALL XR) 15 mg 24 hr capsule Take 1 capsule (15 mg total) by mouth every morning. Active atogepant (QULIPTA) tabletIndication s:Migraine without aura, not intractable, without status migrainosus Take 1 tablet (60 mg total) by mouth daily. 30 tablet 11 5 Active amphetamine-dext roamphetamine (ADDERALL) 7.5 MG tablet Take 1 tablet (7.5 mg total) by mouth daily. 4 06/04/20 25 Discontinu ed(Therapy completed) Active Problems Problem Noted Date Diagnosed Date Acute traumatic pain 06/14/2024 Closed fracture of transverse process of lumbar vertebra 06/14/2024 Discharge planning issues 06/14/2024 Overview (03/07/2025): Admitted 06/13 Hematoma of right thigh 06/14/2024 Scalp abrasion 06/14/2024 Closed displaced fracture of pelvis 06/13/2024 Bulimia nervosa 01/26/2023 Epigastric pain 12/08/2022 Overview (12/08/2022): Added automatically from request for surgery [id number] Indigestion 12/08/2022 Overview (12/08/2022): Added automatically from request for surgery [id number] Nausea and vomiting, unspecified vomiting type 0 12/08/2022 Overview (12/08/2022): Added automatically from request for surgery [id number] Benign paroxysmal positional vertigo of right ea r 07/28/2022 Dysfunction of right eustachian tube 07/28/2022 Lymphadenopathy 06/05/2022 Breast mass in female 08/13/2021 Family history of carcinoma in situ of breast Family history of heart disease 10/24/2019 History of kidney stones 01/02/2019 Allergic rhinitis 01/02/2019 Seizure 01/02/2019 Eating disorder, unspecified type 01/02/2019 Anxiety 01/02/2019 Family history of colon cancer 01/02/2019 Gluten intolerance 01/02/2019 Palpitations Encounters Date Type Department Care Team Description 06/04/2025 10:00 AM CDT Office Visit [facility] Multispecialty Care - [address], [address] [place] [address] Porter Cade MD Follow Up (5mo /Patient struggles with flashing lights, strobe lights. Still having reoccurring migraines. ) 06/04/2025 Travel 05/29/2025 12:02 PM CDT - 05/29/2025 11:59 PM CDT Hospital Encounter [facility] [place] [address] Jaqueline Thomson DPM Discharge Disposition: Home or Self Care (Routine Discharge) 05/29/2025 Travel from Last 3 Months Immunizations Immunization Administration Dates Next Due Influenza Adult (Generic) 08/05/2019 Tdap (Generic) 06/14/2024,07/14/2012 Family History Medical History Relation Comments Cancer Father Lung Cancer Father lung Breast Cancer Maternal Grandmother breast 45 Cancer Maternal Grandmother CAD Mother COPD Mother Heart Disease Mother Stent Cardiac Mother Breast Cancer Paternal Grandmother breast 60 Cancer Paternal Grandmother Colon Cancer Paternal Uncle Cancer Sister 1 Colon Cancer Sister 1 Relation Status Comments Father (Age 67) Maternal Grandmother Mother (Age 68) Paternal Grandmother (Age 89) Paternal Uncle Alive Sister 1 Alive Sister 2 Alive Social History Tobacco Use Types Packs/Day Years Used Date Smoking Tobacco: Never Passive Smoke Exposure: Never Smokeless Tobacco: Never Tobacco Cessation:Counseling Given: Not Answered Alcohol Use Standard Drinks/Week Comments Yes 0 (1 standard drink = 0.6 oz pur e alcohol) socially / monthly PHQ-2 Answer Date Recorded Patient Health Questionnaire-2 Score 0 10/16/2024 Comments No Sex and Gender Information Value Date Recorded Sex Assigned at Female 11/13/2024 11:18 AM CDT Legal Sex Female 7:17 PM CDT Gender Identity Not on file Sexual Orientation Not on file 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 Not on file Not on file Last Filed Vital Signs Vital Sign Reading Time Taken Comments Blood Pressure 100/66 06/04/2025 10:06 AM CDT Pulse 60 06/04/2025 10:06 AM CDT Temperature 37.2 C (98.9 F) 03/08/2025 2:19 PM CDT Respiratory Rate 16 06/20/2024 1:57 PM CDT Oxygen Saturation 100% 06/04/2025 10:06 AM CDT Inhaled Oxygen Concentration - - Weight 54.4 kg (120 lb) 06/04/2025 10:06 AM CDT Height 160 cm (5' 3) 06/04/2025 10:06 AM CDT Body Mass Index 21.26 06/04/2025 10:06 AM CDT Plan of Treatment Upcoming Encounters Date Type Department Care Team (Late st Contact Info) Description 06/22/2025 11:00 AM CDT Appointment [facility] [place] [address] Porter Cade MD 3 [place] [address] 07/03/2025 7:50 AM CDT Office Visit [facility] Family Medicine - [place] [address] [place] [address] Akanksha De Jesus MD [address] [place] [address] 07/20/2025 12:45 PM VEHICLE LEASING AND RENTAL MANAGER Office Visit [facility]-[address] [address] Brooks Vance MD [address] [facility] [address] [place] [address] 11/05/2025 10:20 AM VEHICLE LEASING AND RENTAL MANAGER Office Visit [facility] Multispecialty Care - [facility] [address] [facility], [address] [place] [phone] Porter Cade MD 3 [place] [address] Health Maintenance Due Date Last Done Comments Hepatitis C 2000 Hepatitis B Vaccines (1 of 3 - 19+ 3-dose series) 2001 Pneumococcal Vaccine: Pediatrics (0 to 5 Years) and At-Risk Patients (6 to 49 Years) (1 of 2 - PCV) 2001 HPV Vaccines (1 - 3-dose SCD M series) 2009 Cervical Cancer Screening Pa p with HPV Testing (Age 30 to 64) Every 5 Years 2012 Annual Physical 10/24/2020 10/24/2019, 01/02/2019 COVID-19 Vaccine ( - 2024-2 6 season) 2025 09/03/2021, 11/27/2020, 11/05/2020 Influenza Adult (#1) 2025 08/05/2019 Mammogram Screening 05/29/2027 05/29/2025, 09/11/2022, 07/23/2021 Cervical Cancer Screening Pa p Smear (Age 30 to 64) Every 3 Years 03/06/2028 03/06/2025, 12/01/2023 Cervical Cancer Screening wi th HPV 03/06/2028 DTaP, Tdap and Td Vaccines ( 3 - Td or Tdap) 06/14/2034 06/14/2024, 07/14/2012 PHQ-2 (Physician [place]) Completed 10/16/2024 Hepatitis A Vaccines Aged Out No long er eligible based on patient's age to complete this topic Meningococcal B Vaccine Aged Out No l onger eligible based on patient's age to complete this topic Meningococcal Vaccine Aged Out No rosalie amadeo eligible based on patient's age to complete this topic RSV Immunizations Under 20 Months Aged Out No longer eligible b ased on patient's age to complete this topic Procedures Procedure Name Priority Date/Time Associated Diagnosis Comments MG SCREENING W JESSICA JELENA DIGI Routine 05/29/2025 12:23 PM CDT Encounter for screening mammogram for malignant neoplasm of breast from Last 3 Months Results * MG SCREENING W JESSICA JELENA DIGI (05/29/2025 12:23 PM CDT) Anatomical Region Laterality Modality Breast Bilateral Mammography 05/29/2025 2:04 PM CDT Impressions 05/29/2025 2:05 PM CDT IMPRESSION: No suspicious mammographic findings. Recommendation: 1. Routine Screening, Bilateral Assessment: ACR BI-RADS 2 - BENIGN FINDING(S) Ordered By: JAQUELINE CANSECO Interpreted By: Panda Lou, 05/29/2025 2:04 PM Narrative 05/29/2025 2:05 PM CDT [facility] [address] [place] [address] Examination: Screening bilateral mammogram Exam Date/Time: 05/29/2025 12:12 PM Clinical history: No current complaints. Comparison: 09/11/2022 Technique: Digital screening mammography of both breasts was performed. Breast tomosynthesis acquisitions were obtained and reviewed. This study was read with the assistance of a computer-aided detection system. Tissue density: The breasts are heterogeneously dense, which may obscure small masses. Findings: No suspicious masses, malignant appearing calcifications, skin thickening or other abnormalities are present. No significant change from the prior exam. Jaqueline Canseco DPM MAMMO Final Re sult from Last 3 Months Insurance [facility] [employer] [place] Care Teams Traffic Safety Administrator Relationship Specialty Start Date End Date Akanksha De Jesus MD [address] [place] [address] PCP - General FAMILY PRACTICE 06/19/24 Rose Pacheco MD [address] [facility] [address] [place] [address] Referring Physician GASTROENTEROLOGY 01/02/19 Rivera Solitario MD [address] [facility] [address] [place] [address] Referring Physician DERMATOLOGY 01/02/19
--- OUTSIDE RECORDS SUMMARY | 2025-06-19 16:02 | XMS_ITS | Encounter Summary ---
Author Organization [facility] Address [address] [place] [address] Care Team Providers Care Wind Projects Supervisor Name Role Phone Rose Pacheco MD Unavailable [phone] Rivera Solitario MD Unavailable [phone] Kary Morocho NP Primary Care Provider [phone] Akanksha De Jesus MD Primary Care Provider + Encounter Details Date Type Department Care Team (Late st Contact Info) Description 11/19/2023 MyChart Message Enc [facility] Family Medicine - [place] [address] [facility] [address] [place], [place] [phone] Kary Morocho, [place] [address] [place] [address] [place], [place] [address] New med Social History Tobacco Use Types Packs/Day Years [...] Info) Description 06/22/2025 11:00 AM CDT Appointment [facility] [address] Porter Cade MD 3 [place] [address] 07/03/2025 7:50 AM CDT Office Visit [facility] Family Medicine - [place] [address] [place] [address] Akanksha De Jesus MD [address] [place] [phone] 07/20/2025 12:45 PM MACHINE WIPER Office Visit [facility] [address] Brooks Vance MD [address] [facility] [address] [place] [address] 11/05/2025 10:20 AM MACHINE WIPER Office Visit [facility] Multispecialty Care - [facility] [address] [facility], [address] [place] [phone] Porter Cade MD 3 [place] [address] documented as of this encounter Visit Diagnoses Not on filedocumented in this encounter Additional Health Concerns Assessment Noted Time PHQ-9 Depression Total Score: 10 023 10:50 AM MACHINE WIPER documented as of this encounter Care Teams Wind Projects Supervisor Relationship Specialty Start Date End Date Kary Morocho NP [address] [place] [address] PCP - General NURSE PRACTITIONER 09/17/20 06/18/24 Akanksha De Jesus MD [address] [facility] [address] [place] [address] PCP - General FAMILY PRACTICE 06/19/24 Rose Pacheco MD [address] [facility] [address] [place] [address] Referring Physician GASTROENTEROLOGY 01/02/19 Rivera Solitario MD [address] [facility] [address] [place] [address] Referring Physician DERMATOLOGY 01/02/19 documented as of this encounter
== END 2025-06-19 14:01 | disposition home or self-care (01) ==
PROVIDERS: Visit Provider Nurse Practitioner Family
DX: N20.0 Calculus of kidney (principal)
CPT/HCPCS: 74018